=== PATIENT | male | born 1990 | race Two or more races ===

== ENCOUNTER → 2016-10-31 | Outpatient (CLI) | payer BC ==
[2016-10-31 10:31] LABS: HEMATOCRIT 46.8 % (42.0-52.0); HEMOGLOBIN 15.9 g/dL (14.0-18.0)
== END ==
LOC: MOB LAB 09:31
PROVIDERS: ATTEND Family Medicine
DX: K62.5 Hemorrhage of anus and rectum (principal)
CPT/HCPCS: 36415; 85014; 85018

== ENCOUNTER 2016-11-01 07:56 | Day surgery (SDC) | payer BC ==
[~2016-11-01 07:56] MED LIST: Fleet Enema 133ml RECTAL ONE; LIDOCAINE MPF 2% - 5 ML (20 MG/1 ML) ONE; LIDOCAINE W/ SODIUM BICARB 0.5 ML SYR ONE; Lactated Ringers 1,000 ML PRIMARY IV ONE; MIDAZOLAM 5 MG/1 ML ONE; ROCURONIUM 10 MG/1 ML - 5 ML VIAL IVP ONE; SUCCINYLCHOLINE CHLORIDE 20 MG/1 ML - 10 ML ONE; fentaNYL Inj 250 MCG/5 ML VIAL ONE
[2016-11-01] MEDS ORDERED: BUPIVACAINE 0.5% W/ EPI - 10 ML VIAL ONE (09:38)
[2016-11-01] MEDS ORDERED: DIBUCAINE RECTAL ONE (09:38)
[2016-11-01] MEDS ORDERED: ePHEDrine Inj 50 MG/ML AMP ONE (10:30)
[2016-11-01] MEDS ORDERED: Lactated Ringers 1,000 ML PRIMARY IV ONE (10:48)
--- NOTE | 2016-11-01 11:13 | GEN.OPNOTE ---
Colonoscopy Procedure Note Surgery Date: 11/01/16 Preoperative Diagnosis: Bright red blood per rectum. Down's syndrome. Postoperative Diagnosis: Same. Internal hemorrhoid. Procedure: #1 complete colonoscopy. #2 hemorrhoids ligation by rubber band. Surgeon: Alvarez Sosa MD Anesthesia Provider: Luigi Hough CRNA Anesthesia Type: General Indications: Patient is a 26-year-old with Down's syndrome. He's been having a significant amount of rectal bleeding. It's been worse the last month but has been going on for 3 months. He is taken for examination and treatment. Findings: Prep : [Actually very good.] Cecum : [Retained stool but no gross abnormalities. No blood.] Ascending : [Normal] Transverse : [Several small pieces of retained stool. No blood. Mucosa normal. ] Sigmoid : [Normal] Rectum : [Normal] Digital Rectal Exam : [Combined internal and external hemorrhoids] Anoscopy:[Combined internal and external hemorrhoids. Rubber band ligation done of a large anterior hemorrhoid. Infrared coagulation done several areas next to it.] A lubricated flexible colonoscope was inserted and passed to the blind end of the cecum. There is some stool in the cecum. The blind end of the cecum was clearly seen. Air was aspirated as the scope was withdrawn. The entire colonoscopy was normal without polyp, tumor, neoplastic mass, infectious or inflammatory process. There was no blood until we got to the anal opening. The scope was withdrawn. A bivalved anal speculum was inserted. There was a large combined anterior internal and external hemorrhoid. There is some bleeding from the internal component. A rubber band ligation was done. There is another area which looked friable but it was right at the dentate line. Infrared coagulation was done in several spots just above the dentate line. Hemostasis was assured. The patient tolerated all aspects of the procedure well without complication. He was taken to outpatient surgery in stable condition. Follow-up will be in my office in a week to 10 days to see how he is doing.
[2016-11-01 11:17] VITALS: TEMP 97.2
[2016-11-01 12:51] VITALS: RESP 15
== END 2016-11-01 11:50 | disposition home or self-care (01) ==
LOC: SDSC 07:56
PROVIDERS: ATTEND Surgery
DX: K62.5 Hemorrhage of anus and rectum (principal); Q90.9 Down syndrome, unspecified; K64.8 Other hemorrhoids
CPT/HCPCS: 45398; J0330; J2001; J2250; J2704; J3010; J7120